=== PATIENT | female | born 1945 | race African-American/Black ===

== ENCOUNTER 2016-08-11 15:21 | Outpatient (CLI) | payer MEDICARE, OTHER | END 2016-08-11 15:22 | disposition home or self-care (01) | LOC: HPCALD 15:21 | PROVIDERS: ATTEND Family Medicine | DX: R10.2 Pelvic and perineal pain (principal) | CPT/HCPCS: 87086 ==

== ENCOUNTER 2016-08-15 10:03 | Outpatient (CLI) | payer MEDICARE, OTHER ==
[2016-08-15 11:33] LABS: ALT (SGPT) 22 U/L (0-55); AST (SGOT) 24 U/L (5-34); Albumin 4.2 g/dL (3.4-4.8); Alkaline Phosphatase 69 U/L (40-150); Bilirubin, Direct 0.2 mg/dL (0.1-0.3); Bilirubin, Total 0.4 mg/dL (0.2-1.2); Cardiac Risk 3.2 (Less than 4.5); Cholesterol 151 mg/dL (< 200 Desired); HDL Cholesterol 47 mg/dL (>60 Neg Risk); LDL Cholesterol, Calculated 93 mg/dL; Protein, Total 7.5 g/dL (5.8-8.1); Triglycerides 55 mg/dL (Less than 150)
== END 2016-08-15 10:04 | disposition home or self-care (01) ==
LOC: HPCALD 10:03
PROVIDERS: ATTEND Family Medicine
DX: E78.2 Mixed hyperlipidemia (principal)
CPT/HCPCS: 36415; 80061; 80076

== ENCOUNTER 2021-01-25 10:32 | Outpatient (CLI) | payer MEDICARE | END 2021-01-25 10:33 | disposition home or self-care (01) | LOC: BURRAD 10:32 | PROVIDERS: ATTEND Physician Assistant | DX: M17.0 Bilateral primary osteoarthritis of knee (principal); M89.8X6 Other specified disorders of bone, lower leg ==